=== PATIENT | male | born 1955 | race Caucasian/White ===

== ENCOUNTER 2020-04-19 14:59 | Day surgery (SDC) | payer BC ==
[2020-04-15 09:01] LABS: BASOPHILS # (AUTO) 0.1 X10'3 (0-0.2); BASOPHILS % (AUTO) 0.9 % (0-1); EOSINOPHILS # (AUTO) 0.2 X10'3 (0-0.9); EOSINOPHILS % (AUTO) 2.7 % (0-6); HEMATOCRIT 42.9 % (42.0-52.0); HEMOGLOBIN 14.5 g/dl (14.0-17.9); LYMPHOCYTES # (AUTO) 1.6 X10'3 (1.1-4.8); LYMPHOCYTES % (AUTO) 24.8 % (21-51); MEAN CORPUSCULAR HEMOGLOBIN 29.8 PG (27.0-31.0); MEAN CORPUSCULAR HGB CONC 33.8 g/dL (33.0-36.5); MEAN CORPUSCULAR VOLUME 87.9 FL (78-98); MEAN PLATELET VOLUME 8.2 FL (7.4-10.4); MONOCYTES # (AUTO) 0.5 X10'3 (0-0.9); MONOCYTES % (AUTO) 7.9 % (2-12); NEUTROPHILS # (AUTO) 4.2 X10'3 (1.8-7.7); NEUTROPHILS % (AUTO) 63.7 % (42-75); PLATELET COUNT 236 X10'3 (140-440); RED BLOOD COUNT 4.87 X10'6 (4.70-6.10); RED CELL DISTRIBUTION WIDTH 13.2 % (11.5-14.5); WHITE BLOOD COUNT 6.6 X10'3 (4.5-11.0)
[2020-04-15 09:08] LABS: ALBUMIN 4.1 G/DL (3.4-5.0); ANION GAP 9 (8-16); BLOOD UREA NITROGEN 20 MG/DL (7-18); BUN/CREATININE RATIO 19.2 (5.4-32.0); CALCIUM 8.5 MG/DL (8.5-10.1); CHLORIDE 100 MMOL/L (99-107); CREATININE 1.04 MG/DL (0.60-1.10); POTASSIUM 3.9 MMOL/L (3.5-5.1); SODIUM 134 MMOL/L (135-145); TOTAL CARBON DIOXIDE 25.1 MMOL/L (24-32); eGFR 72 ML/MIN
[2020-04-15 09:11] LABS: GLUCOSE 93 MG/DL (70-104); PARTIAL THROMBOPLASTIN TIME 28 SECONDS (22-32)
[2020-04-19] VITALS (12 sets, daily range): BP systolic 129–148; BP diastolic 83–97
[~2020-04-19] VITALS: Ht 177.8 cm; Wt 134.0 kg
[~2020-04-19 14:59] MED LIST: ASPI-845 PO; CALC1TAB5; CHOL100024; DOCU-20 PO; FERR47.5; LORA10TA7 PO; MELA10TA PO; VITA150T
[2020-04-19] MEDS ORDERED: MULT-1085 PO (15:35)
[2020-04-19] MEDS ORDERED: APIX5TAB3 PO (15:35)
[2020-04-19] MEDS ORDERED: UBID200C18 PO (15:35)
[2020-04-19] MEDS ORDERED: [UNRECOGNIZED DRUG - OTHER] (15:35)
[2020-04-19] MEDS ORDERED: GLUC-131 PO (15:35)
[2020-04-19] MEDS ORDERED: ASCO-139 PO (15:35)
[2020-04-19] MEDS ORDERED: TEMA15CA PO (15:35)
[2020-04-19] MEDS ORDERED: DILT360C29 PEG (15:35)
[2020-04-19] MEDS ORDERED: normal saline 1000ml 1,000 ML IV SCH (15:45)
[2020-04-19] MEDS ORDERED: MIDAZolam 1mg/ml 10ml vial IV ONE (15:45)
[2020-04-19] MEDS ORDERED: fentaNYL/PF 50MCG/1 ML 2ML syringe IV ONE (15:45)
== END 2020-04-19 19:20 | disposition home or self-care (01) ==
LOC: SSTAY O 14:59
PROVIDERS: ATTEND Internal Medicine Interventional Cardiology
DX: I48.91 Unspecified atrial fibrillation (principal)
CPT/HCPCS: 36415; 80048; 85025; 85610; 85730; 92960; 93005; J2250; J3010; J7030